=== PATIENT | female | born 1990 | race Caucasian/White ===

== ENCOUNTER 2021-01-06 13:22 | Emergency (ER) | payer MEDICAID, SELFPAY ==
[2021-01-06 13:25] VITALS: BP 135/81; PULSE 108; RESP 18; TEMP 36.7; O2SAT 99; BMI 19.1
[2021-01-06 13:27] VITALS: BP 135/81; PULSE 108; RESP 18; O2SAT 99; BMI 19.1
--- NOTE | 2021-01-06 13:45 | HMH.EDUTC ---
[facility] [place] Impression: Urticaria Disposition: Home, Self-Care Condition on Discharge: Good Instructions: DI for Hives, Hives, Methylprednisolone Additional Instructions: Over the counter Benadryl as directed on package for itching and rash Start Medrol dose pack tomorrow 01/07/21 Return if needed Straight to ER if any life threatening symptoms Follow up with your Family Doctor if needed Prescriptions: methylPREDNISolone [Medrol 4mg tab] 4 mg PO DIRECTED #21 tab Transmission Status: Pending to [facility]/pharmacy #[id number] Referrals: PCP,No [Primary Care Provider] - As needed Time of Disposition: 14:25 Medical Decision Making - Shubham Inquiry Pt receiving controlled substance: No Shubham was queried for this patient: No Vital Signs: 01/06/21 13:25 01/06/21 13:27 Temperature 98.0 F Temperature Source Oral Pulse Rate [Left Radial] 108 H 108 H Respiratory Rate 18 18 Blood Pressure [Right Arm] 135/81 135/81 Blood Pressure Mean [Right Arm] 99 99 Blood Pressure Source [Right Arm] Automatic Cuff Blood Pressure Position [Right Arm] Sitting 02 Sat by Pulse Oximetry 99 99 Oxygen Delivery Method Room Air Room Air Orders (Tests/Meds): ED MEDICATIONS Discontinued Medications Generic Name Dose Route Start Last Admin Trade Name Freq PRN Reason Stop Dose Admin Diphenhydramine HCl 25 mg 01/06/21 13:46 01/06/21 14:05 Diphenhydramine 50mg/Ml Vial IM 01/06/21 13:47 25 mg ONCE ONE Administration Famotidine 20 mg 01/06/21 13:46 01/06/21 14:05 Famotidine 20mg Tablet PO 01/06/21 13:47 20 mg ONCE ONE Administration Loratadine 10 mg 01/06/21 13:47 01/06/21 14:05 Loratadine 10mg Tablet PO 01/06/21 13:48 10 mg ONCE ONE Administration Methylprednisolone Sodium Succinate 125 mg 01/06/21 13:45 01/06/21 14:05 Methylprednisolone Sod Succ 125mg Vial IM 01/06/21 13:46 125 mg ONCE ONE Administration Medical Decision Narrative: Rash improved after medication [facility] [place] - General Stated complaint: rash/hives on face and arms Time Seen by Provider: 01/06/21 13:45 Mode of Arrival: Ambulatory Source of Information: Patient Limitations: No Limitations Description of Symptoms (Recalled from Triage Doc. by RN): c/o rash on face. Denies any throat swelling, dryness or pain - History of Present Illness Provider Complaint: Patient state that she was out in the [place] a few days ago and she started breaking out with rash on her face and arms and has a couple spots on her leg Reports that rash is itchy and spot around her eye has got worse since yesterday State that she took Benadryl last night and it helped a little but today was still getting worse so she came in - Related Data Previous Rx's Medication Instructions Recorded methylPREDNISolone [Medrol 4mg 4 mg PO DIRECTED #21 tab 01/06/21 tab] Allergies Allergy/AdvReac Type Severity Reaction Status Date / Time amoxicillin [From Augmentin] Allergy Verified 01/06/21 13:44 clavulanic acid Allergy Verified 01/06/21 13:44 [From Augmentin] - Worker's Comp Is this a Worker's Comp case?: No [facility] History - Hepatitis A Screen Drug use history?: No High risk sexual behaviors?: No History of sexually transmitted infection?: No Currently employed?: No Childcare worker?: No Do you have indoor plumbing?: Yes Do you have electricity?: Yes Attestation statement:: This patient has been screened for Hepatitis A risk factors. I have reviewed the patient's past medical history: Yes Laterality Cases: Bilateral: Tonsillectomy - Social History Smoking Status: Current every day smoker Tobacco Type: cigarettes # Packs/Day (cigarettes): 1 Alcohol Intake: never Occupational Status: other ROS Obtained: Yes All systems reviewed & no additional complaints, Yes Systems reviewed as appropriate & no additional complaints - Integumentary/Breasts Skin/Breast: Reports rash Physical Exam -
[2021-01-06 14:25] VITALS: BP 135/81; PULSE 108; RESP 18; TEMP 36.7; O2SAT 99
== END 2021-01-06 14:27 | disposition home or self-care (01) ==
LOC: ER 13:29 → UTC 13:30
PROVIDERS: Emergency Provider Nurse Practitioner
DX: L50.9 Urticaria, unspecified (principal); Z88.1 Allergy status to other antibiotic agents; F17.210 Nicotine dependence, cigarettes, uncomplicated
CPT/HCPCS: 96372; 99202; G0463

== ENCOUNTER → 2021-05-26 14:05 | Outpatient (CLI) | payer MEDICAID, SELFPAY ==
[2021-05-27 07:41] LABS: Progesterone 10.3 ng/mL (.)
== END ==
PROVIDERS: Visit Provider Obstetrics & Gynecology
DX: Z31.69 Encounter for other general counseling and advice on procreation (principal)
CPT/HCPCS: 84144

== ENCOUNTER → 2021-07-02 09:46 | Outpatient (CLI) | payer MEDICAID, SELFPAY ==
[2021-07-02 10:28] LABS: Basophils % 0.5 % (0.1-2.0); Eosinophils # 0.2 K/mm3 (0.0-0.4); Eosinophils % 3.1 % (0.1-12.0); Hematocrit 44.9 % (37.0-47.0); Hemoglobin 14.4 g/dL (12.2-16.2); Lymphocytes # 1.4 K/mm3 (0.7-4.5); Lymphocytes % 19.3 % (10-50); Mean Corpuscular HGB Conc 32.2 g/dL (31.8-35.4); Mean Corpuscular Hemoglobin 32.8 pg (27.0-31.2); Mean Platelet Volume 7.9 fl (7.4-10.4); Monocytes # 0.4 K/mm3 (0.1-1.0); Monocytes % 6.1 % (1.7-9.3); Neutrophils # 5.1 K/mm3 (1.8-7.8); Neutrophils % 70.9 % (37.0-80.0); Platelet Count 272 K/mm3 (142-424); Red Cell Distribution Width 12.6 % (11.5-17.5); White Blood Count 7.2 K/mm3 (4.8-10.8)
[2021-07-02 11:25] LABS: HCG Qualitative, Serum Negative (Negative)
[2021-07-02 11:33] LABS: Chloride 103 mmol/L (98-107); Potassium 4.2 mmoL/L (3.5-5.1); Sodium 140 mmol/L (136-145)
[2021-07-02 11:35] LABS: Blood Urea Nitrogen 8 mg/dl (7-17); Estimated Glomerular Filt Rate 98 ml/min (>60); GFR (African American) 119 ML/MIN (>60)
[2021-07-02 11:36] LABS: Alanine Aminotransferase 19 U/L (12-78); Albumin Level 4.6 g/dl (3.5-5.0); Albumin/Globulin Ratio 1.6 (1.1-1.8); Alkaline Phosphatase 60 U/L (38-126); Anion Gap 17.2 mEq/L (5-15); Aspartate Amino Transferase 25 U/L (14-36); Bilirubin,Total 0.2 mg/dl (0.2-1.3); Calcium 9.4 mg/dl (8.4-10.2); Carbon Dioxide 24 mmol/L (22.0-30.0); Globulin 2.9 g/dL (1.3-3.2); Glucose 97 mg/dl (74-100); Total Protein,Serum 7.5 g/dl (6.3-8.2)
== END ==
PROVIDERS: Visit Provider Obstetrics & Gynecology
DX: Z01.812 Encounter for preprocedural laboratory examination (principal); Z11.52 Encounter for screening for COVID-19; N97.9 Female infertility, unspecified
CPT/HCPCS: 36415; 80053; 84703; 85025; C9803; U0003; U0005

== ENCOUNTER 2021-07-03 12:12 | Day surgery (SDC) | payer MEDICAID, SELFPAY ==
[2021-07-03] VITALS (10 sets, daily range): BP systolic 108–130; BP diastolic 53–78; PULSE 59–86; RESP 16–18; TEMP 36.2–36.7; O2SAT 99–100
--- NOTE | 2021-07-03 14:42 | P.PN_ITS ---
[facility] Anesthesia Checklist - Patient Identification Patient Identification: Arm Band, Verbal (Name & ) - Structural Data Admitted From: Home Planned Operative Procedure/s: diag. lap Consent for Planned Operative Procedure(s) Verified: Yes Verified Documents: History and Physical - NPO Status Verified Time NPO: 00:00 - Chart Verification Results Verified: CBC, BMP - Additional verifications Patient : No Anesthesia Reactions: Yes (N/V) Hx Blood Transfusions: No Blood Transfusion Reaction: No Cephalosporin Allergy: No Previous Colonoscopy: No - Cardiovascular Assessment Heart Sounds: S1 & S2 Pulse Strength: Baseline Pulse Rhythm: Regular Peripheral Edema: No - Airway Assessment C-Spine Mobility Assessed: Yes TMJ Mobility Assessed: Yes Dentition: Good Dentition - Neurological Assessment Level of Consciousness: Awake, Alert, Appropriate Hx Seizures: No Numbness or tingling in extremities: No - Anesthesia Plan Anesthesia Risk discussed: Yes Anesthesia Plan: Verified ASA Class: II Anesthesia Type: General [facility] History I have reviewed the patient's past medical history: Yes Medical History: Denies:: Cancer, Diabetes Mellitus Type 1, Diabetes Mellitus Type 2, Internal Pacemaker, MRSA, Seizures *Have you ever received a pneumonia vaccine?: No *Have you received a flu vaccine this season?: No Other Medical History: Denies: Blood Transfusion Reaction Anesthesia experience/problems:: none Laterality Cases: Bilateral: Myringotomy (Ear Tubes), Tonsillectomy Other Surgeries: No: Pacemaker Amputation: No Fractures: No - *Social History Last grade of school completed: Some college Smoking Status: Former smoker Tobacco Type: cigarettes # Packs/Day (cigarettes): 1 Alcohol Intake: never Substance Use Type: denies use *Occupational Status:: employed Housing: house Household Members: spouse, family *Travel in the last 8 weeks: None Family Hx:: Cancer, Diabetes, Coronary Artery Disease, Hypertension, Substance abuse, Alcoholism, Mental illness, Asthma, Anemia
--- NOTE | 2021-07-03 14:43 | P.PN_ITS ---
[facility] Anesthesia Record Part I Intake, IV Amount: 850 Estimated blood loss (mL): 10 Urine output (mL): 0 Blood Products used (#): none Blood Pressure: 119/59 SaO2: 99 Pulse Rate: 68 Respiratory Rate: 18 Temperature: 98.1 F Patient is:: Awake, Stable Stable to PACU at:: 14:40
--- NOTE | 2021-07-03 15:05 | P.OP_ITS ---
Date of procedure: 07/03/21 Pre-op Diagnosis:: Infertility Post-op Diagnosis:: same Procedure performed:: Diagnostic laparoscopy Chromotubation Surgeon:: Daly Delaney MD [facility] OPERATOR:: Other Anesthesia: GETA Estimated blood loss (mL): 5 Operative findings:: dilated but patent left fallopian tube normal appearing but obstructed right fallopian tube grossly normal appearing ovaries bilaterally grossly normal appearing uterus no pelvic adhesions or evidence of endometriosis Operative note:: The patient was taken to the operating room and general anesthesia was administered. She was prepped/draped in lithotomy position. A uterine manipulator was placed without difficulty. Gloves were changed and attention was turned to the abdomen. A 5mm skin incision was made in the umbilical fold and the verees needle was inserted through the peritoneum and into the abdominal cavity in standard fashion. The abdomen was insufflated with CO2 gas. A 5mm non-bladed trocar was inserted directly into the abdominal cavity and appropriate placement was confirmed with the laparoscope. No intra-abdominal injuries occurred during entry into the abdominal cavity, as confirmed visually with the laparoscope. The patient was placed in trendelenburg and a 5mm skin incision was made 2cm above the pubic symphysis. A 5mm non-bladed trocar was inserted under direct visualization, without complication. The uterus was elevated out of the pelvis in order to better visualize the anatomy. A survey of the pelvis and abdomen revealed 1. a dilated but patent left fallopian tube, 2. a normal appearing but obstructed right fallopian tube, 3. grossly normal appearing ovaries bilaterally, 4. a grossly normal appearing uterus, and 5. no p elvic adhesions or evidence of endometriosis. During the chromotubation, dye was observed passing through the left fallopian tube even though it appeared diated and abnormal. Although the right fallopian tube appeared normal, no dye was able to pass through the right fallopian tube, in spite of multiple attempts. The abdomen was then evacuated of gas and all trocars removed. The skin incisions were closed with dermabond. The uterine manipulator was removed. All sponge/lap/needle/instrument counts correct for both abdominal and vaginal procedures. Total EBL: 5 cc. The patient was taken out of lithotomy position, extubated and taken to the PACU in stable condition. Condition: stable Disposition: PACU Specimens:: none Complications:: none
--- NOTE | 2021-07-03 19:58 | HMH.ANESII ---
[facility] Anesthesia Record Part II Discharge Time: 15:10 Destination: Surgical Day Care (OP Surgery) PACU nurse assessment reviewed?: Yes Patient Condition:: Good Anesthesia Complications:: None Swallowing reflex intact?: Yes Cyanosis?: No Blood Pressure: 111/73 Pulse Rate: 70 Temperature: 97.8 F Mental Status: Alert & Oriented Pain level:: 2 Nausea and/or vomitting:: None Intake, IV Amount: 50
== END 2021-07-03 15:42 | disposition home or self-care (01) ==
LOC: OR 12:14
PROVIDERS: Visit Provider Obstetrics & Gynecology
PROC: (CPT 49320; principal; 2021-07-03 13:30)
DX: N97.1 Female infertility of tubal origin; R87.610 Atypical squamous cells of undetermined significance on cytologic smear of cervix (ASC-US)
CPT/HCPCS: 49320; 58350; 96374; J2405; J2710

== ENCOUNTER 2021-10-13 18:07 | Emergency (ER) | payer MEDICAID, SELFPAY ==
[2021-10-13] VITALS (8 sets, daily range): BP systolic 117–126; BP diastolic 82–87; PULSE 57–109; RESP 10–20; TEMP 36.7; O2SAT 98–100; BMI 25.0
--- NOTE | 2021-10-13 18:12 | XR_ITS ---
PROCEDURE INFORMATION: Exam: XR Chest Exam date and time: 10/13/2021 6:12 PM Age: 31 years old Clinical indication: Sternal or substernal pain; Additional info: Chest pain TECHNIQUE: Imaging protocol: XR of the chest. Views: 1 view. Total images: 1 COMPARISON: No relevant prior studies available. FINDINGS: Lungs: Normal pulmonary expansion. Pulmonary vasculature grossly normal. No gross pulmonary infiltrates or edema pattern. Pleural spaces: No pleural effusion. No pneumothorax. Heart/Mediastinum: Heart size normal. No tracheal/mediastinal shift. Bones/joints: No acute osseous abnormalities are identified. IMPRESSION: No acute thoracic process.
--- NOTE | 2021-10-13 19:07 | ECG_ITS ---
APPROVED REPORT Exam: Resting ECG HR:70 bpm ECG Measurements Heart Rate 70 AXES NC 152 P 74 QRSd 76 QRS 77 QT 392 T 48 QTc 423 Conclusion Normal sinus rhythm Possible Left atrial enlargement Borderline ECG Electronically signed by : Juan Carlos Damico MD 10/14/2021 09:07:13
[2021-10-13 19:16] LABS: Chloride 102 mmol/L (98-107); Potassium 3.7 mmoL/L (3.5-5.1); Sodium 138 mmol/L (136-145)
[2021-10-13 19:19] LABS: Anion Gap 15.7 mEq/L (5-15); Blood Urea Nitrogen 11 mg/dl (7-17); Carbon Dioxide 24 mmol/L (22.0-30.0); Creatinine Clearance Estimated 126 mL/min (50-200); Estimated Glomerular Filt Rate 98 ml/min (>60); GFR (African American) 119 ML/MIN (>60)
[2021-10-13 19:20] LABS: Calcium 9.8 mg/dl (8.4-10.2); Glucose 98 mg/dl (74-100); HCG Qualitative, Serum Negative (Negative)
[2021-10-13 19:21] LABS: Basophils # 0.1 K/mm3 (0-0.2); Basophils % 0.8 % (0.1-2.0); Eosinophils # 0.1 K/mm3 (0.0-0.4); Eosinophils % 0.5 % (0.1-12.0); Hematocrit 44.5 % (37.0-47.0); Hemoglobin 14.4 g/dL (12.2-16.2); Lymphocytes # 1.8 K/mm3 (0.7-4.5); Mean Corpuscular HGB Conc 32.4 g/dL (31.8-35.4); Mean Corpuscular Hemoglobin 31.7 pg (27.0-31.2); Mean Corpuscular Volume 97.7 fl (81-99); Mean Platelet Volume 8.6 fl (7.4-10.4); Monocytes # 0.4 K/mm3 (0.1-1.0); Monocytes % 4.1 % (1.7-9.3); Neutrophils % 77.6 % (37.0-80.0); Platelet Count 299 K/mm3 (142-424); Red Blood Count 4.55 M/mm3 (4.20-5.40); Red Cell Distribution Width 13.5 % (11.5-17.5); White Blood Count 10.3 K/mm3 (4.8-10.8)
[2021-10-13 19:37] LABS: Troponin I < 0.01 ng/ml (0.00-0.034)
[2021-10-13 22:35] LABS: Troponin I < 0.01 ng/ml (0.00-0.034)
--- NOTE | 2021-10-13 22:39 | HMH.EDCP ---
ED Disposition Clinical Impression: Atypical chest pain Disposition: Home, Self-Care Condition on Discharge: Good Instructions: DI for Atypical Chest Pain Additional Instructions: see pcp and card for follow up Referrals: Provider,MD Rimma [Primary Care Provider] - James Garcia MD [Staff Physician] - - Critical Care Critical Care Time: No Attestation: On 10/13/21, the high probability of a clinically significant, sudden or life threatening deterioration of the following system(s) required my full and direct attention, intervention and personal management. The time I documented below is in addition to time spent performing reported procedures but includes the following listed in this critical care notation. Medical Decision Making - Medical Records Medical records reviewed: Yes: I reviewed the patient's medical records. - Shubham Inquiry Pt receiving controlled substance: No Vital Signs: 10/13/21 18:17 10/13/21 18:18 10/13/21 18:30 Pulse Rate 94 H 86 84 Respiratory Rate 11 L 10 L 11 L Blood Pressure 126/87 121/82 Blood Pressure Mean 98 91 Blood Pressure Source Blood Pressure Position 02 Sat by Pulse Oximetry 100 100 100 Oxygen Delivery Method 10/13/21 18:45 10/13/21 20:51 10/13/21 21:29 Pulse Rate 109 H 82 67 Respiratory Rate 13 17 17 Blood Pressure 118/84 117/83 Blood Pressure Mean Blood Pressure Source Automatic Cuff Automatic Cuff Blood Pressure Position Supine Supine 02 Sat by Pulse Oximetry 100 98 99 Oxygen Delivery Method Room Air Room Air 10/13/21 22:13 Pulse Rate 57 L Respiratory Rate Blood Pressure 126/85 Blood Pressure Mean Blood Pressure Source Automatic Cuff Blood Pressure Position Supine 02 Sat by Pulse Oximetry 99 Oxygen Delivery Method Room Air - Lab Data Lab results reviewed: Yes: I reviewed the patient's lab results. Lab Results 10/13/21 18:59: WBC 10.3, RBC 4.55, Hgb 14.4, Hct 44.5, MCV 97.7, MCH 31.7 H, MCHC 32.4, RDW 13.5, Plt Count 299, MPV 8.6, Neut % (Auto) 77.6, Lymph % (Auto) 17.0, [place] % (Auto) 4.1, Eos % (Auto) 0.5, Baso % (Auto) 0.8, Neut # (Auto) 8.0 H, Lymph # (Auto) 1.8, [place] # (Auto) 0.4, Eos # (Auto) 0.1, Baso # (Auto) 0.1 10/13/21 18:59: Sodium 138, Potassium 3.7, Chloride 102, Carbon Dioxide 24, Anion Gap 15.7 H, BUN 11, Creatinine 0.70, Estimated Creat Clear 126, Estimated GFR 98, Est GFR ( Amer) 119, Glucose 98, Calcium 9.8, Troponin I < 0.01 10/13/21 18:59: Serum HCG, Qual Negative 10/13/21 21:37: Troponin I < 0.01 Result diagrams: 10/13/21 18:59 10/13/21 18:59 Orders (Tests/Meds): ED MEDICATIONS Generic Name Dose Route Start Last Admin Trade Name Freq PRN Reason Stop Dose Admin Sodium Chloride 1,000 mls @ 999 mls/hr 10/13/21 22:15 10/13/21 22:17 Sod Chlor 0.9% 1000ml Bag IV 10/13/21 23:15 999 mls/hr .Q1H1M KIRK Administration Sodium Chloride 8 ml 10/13/21 22:13 Sodium Chloride 0.9% 10ml Vial IV 11/12/21 22:12 NEEDED PRN dilute pepcid Discontinued Medications Generic Name Dose Route Start Last Admin Trade Name Freq PRN Reason Stop Dose Admin Famotidine 20 mg 10/13/21 22:13 10/13/21 22:16 Famotidine 20mg/2ml Vial IV 10/13/21 22:14 20 mg ONCE ONE Administration Ketorolac Tromethamine 30 mg 10/13/21 22:13 10/13/21 22:17 Ketorolac 30mg/Ml Vial IV 10/13/21 22:14 30 mg ONCE ONE Administration Metoclopramide HCl 10 mg 10/13/21 22:13 10/13/21 22:16 Metoclopramide Hcl 10mg/2ml Vial IVP 10/13/21 22:14 10 mg ONCE ONE Administration ORDERS Category Date Time Status Rapid PCR Covid and Flu A/B Stat Lab 10/13/21 19:01 Ordered Troponin I Q3H Lab 10/14/21 00:15 Ordered - Radiology Data #1 Image(s): Chest Image Reviewed: Yes I have reviewed radiologist's interpretation Preliminary Findings: Normal/NAD - ECG Data Tracing #1 Normal Sinus Rhythm: Yes Ischemic changes: non-specific ST-T wave changes Medical [facility]
== END 2021-10-13 23:15 | disposition home or self-care (01) ==
PROVIDERS: Emergency Medicine; Emergency Provider Emergency Medicine
DX: R07.89 Other chest pain (principal)
CPT/HCPCS: 71045; 80048; 84484; 84703; 85025; 93005; 96365; 96375; 99282

== ENCOUNTER → 2021-10-22 11:01 | Outpatient (CLI) | payer MEDICAID, SELFPAY | PROVIDERS: PCP Student in an Organized Health Care Education/Training Program; Visit Provider Nurse Practitioner Family | DX: R07.89 Other chest pain (principal); R00.2 Palpitations | CPT/HCPCS: 93270 ==

== ENCOUNTER → 2022-04-15 15:39 | Outpatient (CLI) | payer MEDICAID, SELFPAY ==
[2022-04-15 16:51] LABS: HCG,Quantitative 3785 mIU/ml (0-5.42)
== END ==
PROVIDERS: PCP Family Medicine; Visit Provider Obstetrics & Gynecology
DX: Z34.90 Encounter for supervision of normal pregnancy, unspecified, unspecified trimester (principal)
CPT/HCPCS: 36415; 84702

== ENCOUNTER → 2022-04-18 08:27 | Outpatient (CLI) | payer MEDICAID, SELFPAY ==
[2022-04-18 09:41] LABS: Basophils # 0.1 K/mm3 (0-0.2); Basophils % 0.7 % (0.1-2.0); Eosinophils # 0.3 K/mm3 (0.0-0.4); Eosinophils % 4.6 % (0.1-12.0); Hematocrit 40.6 % (37.0-47.0); Hemoglobin 13.9 g/dL (12.2-16.2); Lymphocytes # 1.5 K/mm3 (0.7-4.5); Lymphocytes % 20.6 % (10-50); Mean Corpuscular HGB Conc 34.3 g/dL (31.8-35.4); Mean Corpuscular Hemoglobin 32.3 pg (27.0-31.2); Mean Corpuscular Volume 94.3 fl (81-99); Mean Platelet Volume 7.6 fl (7.4-10.4); Monocytes # 0.4 K/mm3 (0.1-1.0); Platelet Count 338 K/mm3 (142-424); Red Cell Distribution Width 12.5 % (11.5-17.5); White Blood Count 7.4 K/mm3 (4.8-10.8)
[2022-04-18 10:15] LABS: Chloride 103 mmol/L (98-107); Sodium 136 mmol/L (136-145)
[2022-04-18 10:18] LABS: Alanine Aminotransferase 18 U/L (12-78); Albumin Level 4.9 g/dl (3.5-5.0); Alkaline Phosphatase 50 U/L (38-126); Aspartate Amino Transferase 29 U/L (14-36); Bilirubin,Total 0.8 mg/dl (0.2-1.3); Blood Urea Nitrogen 9 mg/dl (7-17); Calcium 9.7 mg/dl (8.4-10.2); Carbon Dioxide 24 mmol/L (22.0-30.0); Estimated Glomerular Filt Rate 117 ml/min (>60); GFR (African American) 141 ML/MIN (>60); Globulin 2.5 g/dL (1.3-3.2); Glucose 86 mg/dl (74-100); Total Protein,Serum 7.4 g/dl (6.3-8.2)
[2022-04-18 10:36] LABS: HCG,Quantitative 9808 mIU/ml (0-5.42)
== END ==
PROVIDERS: PCP Family Medicine; Visit Provider Obstetrics & Gynecology
DX: O09.90 Supervision of high risk pregnancy, unspecified, unspecified trimester (principal)
CPT/HCPCS: 80053; 84702; 85025; C9803; U0003; U0005

== ENCOUNTER 2022-04-19 10:47 | Day surgery (SDC) | payer MEDICAID, SELFPAY ==
[2022-04-19] VITALS (20 sets, daily range): BP systolic 108–149; BP diastolic 60–96; PULSE 76–101; RESP 11–19; TEMP 36.2–37.1; O2SAT 97–100; BMI 19.6
--- NOTE | 2022-04-19 10:53 | HMH.EDUROGF ---
ED Disposition Clinical Impression: Ectopic , tubal Qualifiers: Intrauterine status: without intrauterine Laterality: right Qualified Code(s): O00.101 - Right tubal without intrauterine Disposition: Admitted As Inpatient Condition on Discharge: Serious - Critical Care Critical Care Time: No Attestation: On 04/19/22, the high probability of a clinically significant, sudden or life threatening deterioration of the following system(s) required my full and direct attention, intervention and personal management. The time I documented below is in addition to time spent performing reported procedures but includes the following listed in this critical care notation. Medical Decision Making - Medical Records Medical records reviewed: Yes: I reviewed the patient's medical records. - Shubham Inquiry Pt receiving controlled substance: No Vital Signs: 04/19/22 10:48 04/19/22 11:20 04/19/22 11:30 Temperature 98.5 F Temperature Source Oral Pulse Rate 82 86 Pulse Rate [Right Radial] 97 H Respiratory Rate 19 16 Blood Pressure 119/88 132/87 Blood Pressure [Right Arm] 149/96 H Blood Pressure Mean 99 Blood Pressure Mean [Right Arm] 113 Blood Pressure Source [Right Arm] Automatic Cuff Blood Pressure Position [Right Arm] Sitting 02 Sat by Pulse Oximetry 100 100 100 Oxygen Delivery Method Room Air Room Air 04/19/22 12:00 04/19/22 12:45 04/19/22 13:12 Temperature 98.8 F Temperature Source Pulse Rate 81 76 101 H Pulse Rate [Right Radial] Respiratory Rate 16 16 11 L Blood Pressure 138/83 134/87 134/87 Blood Pressure [Right Arm] Blood Pressure Mean 100 Blood Pressure Mean [Right Arm] Blood Pressure Source [Right Arm] Blood Pressure Position [Right Arm] 02 Sat by Pulse Oximetry 99 100 Oxygen Delivery Method Room Air Room Air - Lab Data Lab results reviewed: Yes: I reviewed the patient's lab results. Lab Results 04/19/22 10:51: Urine Color Yellow, Urine Appearance Clear, Urine pH 7.0, Ur Specific [place] <= 1.005, Urine Protein Negative, Urine Glucose (UA) Negative, Urine Ketones Negative, Urine Blood Trace-l, Urine Nitrate Negative, Urine Bilirubin Negative, Urine Urobilinogen 0.2, Ur Leukocyte Esterase Negative, Urine RBC None, Urine WBC None, Ur Squamous Epith Cells Occasional, Urine Bacteria Trace 04/19/22 11:20: WBC 7.6, RBC 4.31, Hgb 13.7, Hct 44.2, MCV 102.5 H, MCH 31.9 H, MCHC 31.1 L, RDW 13.1, Plt Count 300, MPV 8.2, Neut % (Auto) 74.9, Lymph % (Auto) 16.0, [place] % (Auto) 4.4, Eos % (Auto) 3.0, Baso % (Auto) 1.6, Neut # (Auto) 5.7, Lymph # (Auto) 1.2, [place] # (Auto) 0.3, Eos # (Auto) 0.2, Baso # (Auto) 0.1 04/19/22 11:20: Sodium 136, Potassium 3.9, Chloride 106, Carbon Dioxide 22, Anion Gap 11.9, BUN 9, Creatinine 0.50 L, Estimated Creat Clear 138, Estimated GFR 144, Est GFR ( Amer) 174 D, Glucose 92, Calcium 9.5, Total Bilirubin 0.7, AST 36, ALT 17, Alkaline Phosphatase 56, Total Protein 7.4, Albumin 4.5, Globulin 2.9, Albumin/Globulin Ratio 1.6 04/19/22 11:20: HCG, Quant [id number] H 04/19/22 11:20: Blood Type A Negative, Antibody Screen Negative 04/19/22 12:46: SARS-CoV-2 (PCR) Not detected, Influenza A Untype (PCR) Not detected, Influenza Type B (PCR) Not detected Result diagrams: 04/19/22 11:20 04/19/22 11:20 Orders (Tests/Meds): ED MEDICATIONS Discontinued Medications Generic Name Dose Route Start Last Admin Trade Name Freq PRN Reason Stop Dose Admin Morphine Sulfate 4 mg 04/19/22 11:28 04/19/22 11:28 Morphine 4mg/Ml Syringe IV 04/19/22 11:29 4 mg ONCE ONE Administration Sodium Chloride 10 ml 04/19/22 11:13 Sodium Chloride 0.9% 10ml Flush Syringe IV 05/19/22 11:12 NEEDED PRN Maintain IV Site - Reevaluation(s) Time: 12:20 Reevaluation #1: Pain is improved after morphine Medical Decision Narrative: The patient presents to the emergency department complaining of righ
[2022-04-19 10:56] LABS: Microscopic, Urine URINE MICROSCOPIC (MICROSCOPIC)
[2022-04-19 10:58] LABS: Appearance,Urine CLEAR (Clear); Bilirubin,Urine Negative (Negative); Blood, Urine TRACE-L (Negative); Color,Urine YELLOW (Yellow); Glucose,Urine (UA) Negative (Negative); Ketones,Urine Negative (Negative); Leukocyte Esterase,Urine Negative (Negative); Nitrate,Urine Negative (Negative); Protein,Urine Negative (Negative); Specific Gravity, Urine <= 1.005 (1.005-1.030); Urobilinogen,Urine 0.2 EU/dl (0.2)
--- NOTE | 2022-04-19 11:12 | PC.NURSE ---
ER gave verbal order for RH type contacted lab to come down and witness blood collection
--- NOTE | 2022-04-19 11:14 | PC.NURSE ---
JIGNESH VIEIRA at
[2022-04-19 11:16] LABS: Bacteria,Urine Trace /lpf; Squamous Epithelial Cell,Urine Occasional #/hpf (0-5)
--- NOTE | 2022-04-19 11:18 | PC.NURSE ---
ZULY Hassan and knowledge management advisor at
--- NOTE | 2022-04-19 11:29 | PC.NURSE ---
informed pt and so no eating or drinking until final test results
[2022-04-19 11:49] LABS: Basophils # 0.1 K/mm3 (0-0.2); Basophils % 1.6 % (0.1-2.0); Eosinophils # 0.2 K/mm3 (0.0-0.4); Hematocrit 44.2 % (37.0-47.0); Hemoglobin 13.7 g/dL (12.2-16.2); Lymphocytes # 1.2 K/mm3 (0.7-4.5); Mean Corpuscular HGB Conc 31.1 g/dL (31.8-35.4); Mean Corpuscular Hemoglobin 31.9 pg (27.0-31.2); Mean Corpuscular Volume 102.5 fl (81-99); Mean Platelet Volume 8.2 fl (7.4-10.4); Monocytes # 0.3 K/mm3 (0.1-1.0); Monocytes % 4.4 % (1.7-9.3); Neutrophils # 5.7 K/mm3 (1.8-7.8); Neutrophils % 74.9 % (37.0-80.0); Platelet Count 300 K/mm3 (142-424); Red Blood Count 4.31 M/mm3 (4.20-5.40); Red Cell Distribution Width 13.1 % (11.5-17.5); White Blood Count 7.6 K/mm3 (4.8-10.8)
[2022-04-19 11:53] LABS: Chloride 106 mmol/L (98-107); Potassium 3.9 mmoL/L (3.5-5.1); Sodium 136 mmol/L (136-145)
[2022-04-19 11:56] LABS: Alanine Aminotransferase 17 U/L (12-78); Albumin Level 4.5 g/dl (3.5-5.0); Albumin/Globulin Ratio 1.6 (1.1-1.8); Alkaline Phosphatase 56 U/L (38-126); Anion Gap 11.9 mEq/L (5-15); Aspartate Amino Transferase 36 U/L (14-36); Bilirubin,Total 0.7 mg/dl (0.2-1.3); Blood Urea Nitrogen 9 mg/dl (7-17); Carbon Dioxide 22 mmol/L (22.0-30.0); Creatinine Clearance Estimated 138 mL/min (50-200); Estimated Glomerular Filt Rate 144 ml/min (>60); GFR (African American) 174 ML/MIN (>60); Globulin 2.9 g/dL (1.3-3.2); Total Protein,Serum 7.4 g/dl (6.3-8.2)
[2022-04-19 11:57] LABS: Calcium 9.5 mg/dl (8.4-10.2); Glucose 92 mg/dl (74-100)
--- NOTE | 2022-04-19 12:00 | US_ITS ---
FINAL REPORT CLINICAL HISTORY: R pelvic pain, r/o ectopic FINDINGS: US TRANSVAGINAL Sonographic images the pelvis were obtained. The endometrium measures 10 mm and is normal. No gestational sac is identified within the uterus. A gestational sac with a yolk sac and pole are noted in the right adnexa consistent with a right ectopic . There is a small to moderate amount of free fluid that may represent a hemorrhage. The left ovary is normal. The emergency department physician was notified of these findings at the time of this examination. IMPRESSION: Gestational sac with a yolk sac and pole noted in the right adnexa consistent with a right ectopic . Reviewed, Interpreted and Dictated by Genaro Weiner III, MD Transcribed by Pza Rios Authenticated and [facility]
--- NOTE | 2022-04-19 12:02 | PC.NURSE ---
notified radiology of ultrasound order, spoke with vy per lab HCG quant will be resulted in approx 12 mins- notified rad of this as well.
--- NOTE | 2022-04-19 12:04 | PC.NURSE ---
updated pt on POC- ultrasound order and waiting on results of HCG quant
[2022-04-19 12:13] LABS: HCG,Quantitative 12913 mIU/ml (0-5.42)
--- NOTE | 2022-04-19 12:14 | PC.NURSE ---
pt to US by wheelchair with technician support association
--- NOTE | 2022-04-19 12:41 | PC.NURSE ---
Pt returned from ultrasound
--- NOTE | 2022-04-19 12:44 | PC.NURSE ---
notified lab of added on type and screen on pt
--- NOTE | 2022-04-19 12:45 | INFXCTL.NOTE ---
grout pump operator paging dr. gonsales, no answer in her office
--- NOTE | 2022-04-19 12:45 | PC.NURSE ---
Addendum entered by Annabella Saez RN 04/19/22 12:53: JIGNESH VIEIRA states Dr. Delaney is going to call the OR staff Original Note: JIGNESH VIEIRA speaking with Dr Delaney
--- NOTE | 2022-04-19 12:49 | PC.NURSE ---
notified care management of admission, spoke with Michelle, states will be an acute admission
--- NOTE | 2022-04-19 12:52 | PC.NURSE ---
ER at updating pt on results and POC
--- NOTE | 2022-04-19 13:00 | PC.NURSE ---
In preparation for OR pt in gown, jewelry removed per pt, non-skid socks on, buffount cap on, chucks pad under pt r/t vaginal bleeding. Pt reports she is comfortable. Reports is warm enough. Pt reports no needs at this time. at BS. will continue to monitor.
--- NOTE | 2022-04-19 13:07 | PC.NURSE ---
kash yanes from pre-op states she is on her way down to get pt.
--- NOTE | 2022-04-19 13:08 | HMH.PHAINT ---
MEDICATION RECONCILIATION COMPLETED ON PATIENT USING EXTERNAL FILL HISTORY FORM PHARMACY. -LUIS WOODARD, LILID
[2022-04-19 13:10] LABS: Coronavirus 19, PCR Not Detected (NotDetected); Influenza A, PCR Not Detected (NotDetected); Influenza B, PCR Not Detected (NotDetected)
--- NOTE | 2022-04-19 13:12 | PC.NURSE ---
report given to kash yanes at this time, she is transporting pt to OR
--- NOTE | 2022-04-19 13:54 | HMH.ANESCL ---
[facility] Anesthesia Checklist - Patient Identification Patient Identification: Arm Band - Structural Data Admitted From: Emergency Dept Planned Operative Procedure/s: Dx. lap Consent for Planned Operative Procedure(s) Verified: Yes - NPO Status Verified Time NPO: 00:00 - Additional verifications Anesthesia Reactions: Yes (N/V) Hx Blood Transfusions: No Blood Transfusion Reaction: No - Airway Assessment C-Spine Mobility Assessed: Yes TMJ Mobility Assessed: Yes Dentition: Good Dentition - Neurological Assessment Level of Consciousness: Awake Hx Seizures: No Numbness or tingling in extremities: No - Anesthesia Plan Anesthesia Risk discussed: Yes Anesthesia Plan: Verified ASA Class: II (II E) Anesthesia Type: General [facility] History I have reviewed the patient's past medical history: Yes Medical History: Denies:: Cancer, Diabetes Mellitus Type 1, Diabetes Mellitus Type 2, Internal Pacemaker, MRSA, Seizures *Have you ever received a pneumonia vaccine?: No *Have you received a flu vaccine this season?: No Other Medical History: Denies: Blood Transfusion Reaction Anesthesia experience/problems:: None Laterality Cases: Bilateral: Myringotomy (Ear Tubes), Tonsillectomy Other Surgeries: No: Pacemaker Amputation: No Fractures: No - *Social History Smoking Status: Former smoker Tobacco Type: cigarettes # Packs/Day (cigarettes): 1 Alcohol Intake: never Substance Use Type: denies use *Occupational Status:: employed Housing: house Household Members: spouse, family *Travel in the last 8 weeks: None Family Hx:: Cancer, Diabetes, Coronary Artery Disease, Hypertension, Substance abuse, Alcoholism, Mental illness, Asthma, Anemia
--- NOTE | 2022-04-19 15:18 | P.PN_ITS ---
[facility] Anesthesia Record Part I Intake, IV Amount: 900 Estimated blood loss (mL): 200 Urine output (mL): 50 Blood Pressure: 108/60 SaO2: 97 Pulse Rate: 90 Respiratory Rate: 13 Temperature: 97.1 F Patient is:: Awake Stable to PACU at:: 15:13
--- NOTE | 2022-04-19 15:48 | P.OP_ITS ---
Date of procedure: 04/19/22 Pre-op Diagnosis:: 1. Right ectopic 2. Hemoperitoneum 3. Tubal occlusion Post-op Diagnosis:: 1. Right ectopic 2. Hemoperitoneum 3. Tubal occlusion 4. Pelvic adhesions Procedure performed:: Diagnostic laparoscopy Right salpingo-oophorectomy Lysis of adhesions Surgeon:: Daly Delaney MD MOLD CONSTRUCTION SUPERVISOR:: Mell Sachayuri Anesthesia: GETA Estimated blood loss (mL): 200 Operative findings:: hemoperitoneum 200cc dilated right fallopian tube ectopic at distal end of right fallopian tube, actively bleeding dense adhesions between right ovary and fallopian tube Operative note:: The patient was taken to the operating room and general anesthesia was administered. She was prepped/draped in lithotomy position. A uterine manipulator was placed without difficulty. Gloves were changed and attention was turned to the abdomen. A 5mm skin incision was made in the umbilical fold and the Verees needle was inserted through the peritoneum and into the abdominal cavity in standard fashion. The abdomen was insufflated with CO2 gas. A 5mm non-bladed trocar was inserted directly into the abdominal cavity and appropriate placement was confirmed with the laparoscope. No intra-abdominal injuries occurred during entry into the abdominal cavity, as confirmed visually with the laparoscope. The patient was placed in trendelenburg and a 11mm skin incision was made 2cm above the pubic symphysis. A 11mm non-bladed trocar was inserted under direct visualization, without complication. A 5mm skin incision was made in the RLQ and a 5mm non-bladed trocar was inserted under direct visualization. The uterus was elevated out of the pelvis in order to better visualize the anatomy. A survey of the pelvis and abdomen revealed active bleeding from the distal end of right fallopian tube where ectopic had ruptured. The fallopian tube was adhesed densely to the right ovary in multiple places. Sharp and blunt dissection was used to mobilize the tube from the ovary but this resulted in bleeding from the ovary and was unsuccessful at liberating the ovary from the tube. The harmonic scalpel was used to excise the right fallopian tube and ovary. An endo-bag was placed through the suprapubic trocar and the specimen placed in the bag. The bag was removed through the 11mm incision. The pelvis was irrigated thoroughly and cleared of all clot and debris. The right pedicle was hemostatic, but Ender was placed over it for additional hemostasis. The abdomen was then evacuated of gas and all trocars removed. The skin incisions were closed with 4-0 monocryl and Dermabond. The patient tolerated the procedure well. Sponge/lap/needle/instrument counts were correct at conclusion of procedure. The uterine manipulator was removed and she was taken out of lithotomy position and awakened from anesthesia, and was taken to the recovery room in stable condition. Condition: stable Disposition: PACU Specimens:: Right fallopian tube and ovary, with products of conception Complications:: none
--- NOTE | 2022-04-19 16:30 | PC.NURSE ---
1540-pt's at bedside, pt drinking water w/out difficulty, denies nausea, medicating for abdominal pain per eMAR, vss, pt stable
--- NOTE | 2022-04-19 16:34 | PC.NURSE ---
1554-pt transported to post op at this time, reports pain is easing, denies nausea, vss, at bedside, pt stable
== END 2022-04-19 16:27 | disposition home or self-care (01) ==
LOC: ER 12:51 → OB 13:22 → SDC 04-25 13:44
PROVIDERS: Obstetrics & Gynecology; PCP Family Medicine; Visit Provider Emergency Medicine
PROC: (CPT 58700; principal; 2022-04-19 13:30)
DX: O00.90 Unspecified ectopic pregnancy without intrauterine pregnancy (principal); K66.1 Hemoperitoneum; N97.1 Female infertility of tubal origin
CPT/HCPCS: 59151; 76817; 80053; 81001; 84702; 85025; 86850; 86900; 86901; 88305; 96374; C9803; J0131; J2405; U0003; U0005

== ENCOUNTER 2022-08-20 18:58 | Emergency (ER) | payer MEDICAID, SELFPAY ==
[2022-08-20] VITALS (8 sets, daily range): BP systolic 105–136; BP diastolic 54–83; PULSE 57–82; RESP 16–18; TEMP 36.8; O2SAT 97–100; BMI 20.2
--- NOTE | 2022-08-20 18:51 | ECG_ITS ---
APPROVED REPORT Exam: Resting ECG HR:73 bpm ECG Measurements Heart Rate 73 AXES AR 151 P 79 QRSd 89 QRS 55 QT 389 T 64 QTc 415 Conclusion SINUS RHYTHM NORMAL ECG UNCONFIRMED REPORT Electronically signed by : Juan Carlos Damico MD 08/21/2022 13:21:50
--- NOTE | 2022-08-20 19:04 | ECG_ITS ---
APPROVED REPORT Exam: Resting ECG HR:62 bpm ECG Measurements Heart Rate 62 AXES FL 158 P 72 QRSd 85 QRS 48 QT 406 T 54 QTc 411 Conclusion SINUS RHYTHM POSSIBLE LEFT ATRIAL ENLARGEMENT [-0.1mV P-WAVE IN V1/V2] POSSIBLE RIGHT VENTRICULAR CONDUCTION DELAY [RSR (QR) IN V1/V2] BORDERLINE ECG UNCONFIRMED REPORT Electronically signed by : Juan Carlos Damico MD 08/21/2022 13:21:47
--- NOTE | 2022-08-20 19:16 | PC.NURSE ---
JIGNESH VIEIRA speaking with dr. segura
--- NOTE | 2022-08-20 19:38 | XR_ITS ---
PROCEDURE INFORMATION: Exam: XR Chest Exam date and time: 08/20/2022 7:55 PM Age: 32 years old Clinical indication: Sternal or substernal pain; Patient HX: History of frequent anxiety attacks. ; Additional info: Chest pain TECHNIQUE: Imaging protocol: Radiologic exam of the chest. Views: 2 views. COMPARISON: CR XR CHEST PORTABLE 10/13/2021 6:45 PM FINDINGS: Lungs: Unremarkable. No consolidation. Pleural spaces: Unremarkable. No pleural effusion. No pneumothorax. Heart/Mediastinum: Unremarkable. No cardiomegaly. Bones/joints: Unremarkable. IMPRESSION: No acute cardiopulmonary abnormality.
[2022-08-20 19:46] LABS: Microscopic, Urine URINE MICROSCOPIC (MICROSCOPIC)
[2022-08-20 19:47] LABS: Appearance,Urine CLEAR (Clear); Basophils # 0.1 K/mm3 (0-0.2); Basophils % 0.9 % (0.1-2.0); Bilirubin,Urine Negative (Negative); Blood, Urine Negative (Negative); Color,Urine YELLOW (Yellow); Eosinophils # 0.1 K/mm3 (0.0-0.4); Eosinophils % 1.8 % (0.1-12.0); Glucose,Urine (UA) Negative (Negative); Hematocrit 40.5 % (37.0-47.0); Hemoglobin 13.7 g/dL (12.2-16.2); Ketones,Urine Negative (Negative); Leukocyte Esterase,Urine Negative (Negative); Lymphocytes # 2.1 K/mm3 (0.7-4.5); Lymphocytes % 26.8 % (10-50); Mean Corpuscular HGB Conc 33.8 g/dL (31.8-35.4); Mean Corpuscular Volume 97.7 fl (81-99); Mean Platelet Volume 8.2 fl (7.4-10.4); Monocytes # 0.3 K/mm3 (0.1-1.0); Monocytes % 4.1 % (1.7-9.3); Neutrophils # 5.1 K/mm3 (1.8-7.8); Neutrophils % 66.4 % (37.0-80.0); Nitrate,Urine Negative (Negative); PH,Urine 6.5 (5.0-8.5); Platelet Count 298 K/mm3 (142-424); Protein,Urine Negative (Negative); Red Blood Count 4.15 M/mm3 (4.20-5.40); Red Cell Distribution Width 12.7 % (11.5-17.5); Urobilinogen,Urine 0.2 EU/dl (0.2); White Blood Count 7.7 K/mm3 (4.8-10.8)
[2022-08-20 19:51] LABS: Urine Pregnancy, HCG Qual. Negative (Negative)
[2022-08-20 19:53] LABS: Alanine Aminotransferase 18 U/L (12-78); Albumin Level 4.7 g/dl (3.5-5.0); Albumin/Globulin Ratio 1.7 (1.1-1.8); Alkaline Phosphatase 63 U/L (38-126); Anion Gap 15.5 mEq/L (5-15); Aspartate Amino Transferase 28 U/L (14-36); Bilirubin,Total 0.4 mg/dl (0.2-1.3); Blood Urea Nitrogen 11 mg/dl (7-17); Calcium 10.5 mg/dl (8.4-10.2); Carbon Dioxide 26 mmol/L (22.0-30.0); Chloride 100 mmol/L (98-107); Creatinine Clearance Estimated 119 mL/min (50-200); Estimated Glomerular Filt Rate 117 ml/min (>60); GFR (African American) 141 ML/MIN (>60); Globulin 2.7 g/dL (1.3-3.2); Glucose 81 mg/dl (74-100); Potassium 3.5 mmoL/L (3.5-5.1); Sodium 138 mmol/L (136-145); Total Protein,Serum 7.4 g/dl (6.3-8.2)
[2022-08-20 20:12] LABS: Troponin I < 0.01 ng/ml (0.00-0.034)
[2022-08-20 20:27] LABS: C-Reactive Protein 0.4 mg/L (0-4)
[2022-08-20 20:31] LABS: Erythrocyte Sedimentation Rate 3 mm/hr (0-20)
[2022-08-20 20:57] LABS: Squamous Epithelial Cell,Urine Occasional #/hpf (0-5); WBC,Urine Occasional #/hpf (0-3)
--- NOTE | 2022-08-20 22:16 | CT_ITS ---
PROCEDURE INFORMATION: Exam: CTA Chest With Contrast Exam date and time: 08/20/2022 10:19 PM Age: 32 years old Clinical indication: Sternal or substernal pain; Additional info: Cp SOA TECHNIQUE: Imaging protocol: Computed tomographic angiography of the chest with contrast. 3D rendering (Not supervised by radiologist): MIP and/or 3D reconstructed images were created by the technologist. Radiation optimization: All CT scans at this facility use at least one of these dose optimization techniques: automated exposure control; mA and/or kV adjustment per patient size (includes targeted exams where dose is matched to clinical indication); or iterative reconstruction. Contrast material: ISOVUE; Contrast volume: 70 ml; Contrast route: INTRAVENOUS (IV); COMPARISON: CR XR CHEST 2V 08/20/2022 7:55 PM FINDINGS: Pulmonary arteries: Normal. No pulmonary emboli. Aorta: Unremarkable. No aortic aneurysm. No aortic dissection. Lungs: Unremarkable. No consolidation. No masses. Pleural spaces: Unremarkable. No pneumothorax. No pleural effusion. Heart: Unremarkable. No cardiomegaly. No pericardial effusion. Lymph nodes: Unremarkable. No enlarged lymph nodes. Bones/joints: Unremarkable. No acute fracture. Soft tissues: Unremarkable. IMPRESSION: No findings of acute pulmonary embolism. Clear lung parenchyma.
[2022-08-20 22:32] LABS: Troponin I < 0.01 ng/ml (0.00-0.034)
--- NOTE | 2022-08-20 22:53 | HMH.EDCP ---
Discharge Plan Disposition Patient Disposition: Home, Self-Care Chief Complaint: Chest Pain Prescriptions Prescriptions: No Action ondansetron 4 mg tablet,disintegrating 4 mg PO Q4H PRN (Reason: nausea and vomiting) Qty: 30 4RF Dulera 200-5 mcg/actuation HFA aerosol inhaler 2 puff IH BID Qty: 13 5RF albuterol sulfate 90 mcg/actuation HFA aerosol inhaler 1 inh IH QID PRN (Reason: wheezing) Qty: 8.5 5RF hydroxyzine HCl 25 mg tablet 25 mg PO TID PRN (Reason: anxiety) Qty: 30 1RF Referrals Follow up/Referrals: Provider,Referral, MD [Primary Care Provider] - See instructions Clinical Impressions Clinical Impression: Atypical chest pain Instructions Patient Instructions: DI for Atypical Chest Pain Discharge ED Provider: Marcus Talamantes Chest Pain HPI General Chief Complaint: Chest Pain Stated Complaint: chest pain Time Seen by Provider: 08/20/22 21:15 Mode of Arrival: Ambulatory Source of Information: Patient and Medical Record Limitations: No Limitations Description of Symptoms (Recalled from ER Triage Doc. by RN): pt states that she has a chest pain she stated that she gets chest pain frequantly but this pain is different the pt states the pain is radiating through to her back and she has tingling in her left arm and then gets a cool feelig in her hand this feeling is not constant and relieves on its own then comes back. the pt has a hx of anxiety but states again she has a hx of chest pain and was told not to wait over an hour if the pain is consistant History of Present Illness HPI narrative: acute onset of midsternal sharp chest rad through to back while at rest - no known ht dis and no recent viral illness MD complaint: chest pain indicative of cardiac Onset (ago): hour(s) Duration: intermittent Activity at onset: during rest Pain location: epigastric Severity: moderate Quality: sharp Pain radiation: back Relieving factors: nothing Risk Factors for CAD: Family Hx of CAD and Smoking Treatments prior to or on arrival for Cardiac Chest Pain: none BOY Score for Non-Stemi Age of Patient: 30-39 years old Heart Rate: 70-89 bpm Systolic Blood Pressure: 120-139 mmhg Serum Creatinine: 0.40-0.79 mg/dl CHF [place] Class: I-No CHF Other Risk Factors: None Non-Stemi Risk Score: 55 Related Data On Oral Contraceptives: No Previous Rx's Medication Instructions Recorded ondansetron 4 mg disintegrating 4 mg PO Q4H PRN nausea and 04/15/22 tablet vomiting #30 tabs albuterol sulfate 90 mcg/actuation 1 inh inhalation QID PRN wheezing 05/01/22 aerosol inhaler #8.5 grams mometasone-formoterol HFA 200 2 puff inhalation BID #13 grams 05/01/22 mcg-5 mcg/actuation aerosol inhaler (Dulera) hydroxyzine HCl 25 mg tablet 25 mg PO TID PRN anxiety #30 tabs 06/17/22 Allergies Allergy/AdvReac Type Severity Reaction Status Date / Time amoxicillin [From Augmentin] Allergy Verified 05/01/22 11:41 clavulanic acid Allergy Verified 05/01/22 11:41 [From Augmentin] [facility] Social History Smoking Status: Smoker, status unknown tobacco type: cigarettes packs per day: 1 alcohol intake: never substance use type: denies use current occupational status: employed Travel in the last 8 weeks: None household members: spouse and family housing: house 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
== END 2022-08-20 23:06 | disposition home or self-care (01) ==
PROVIDERS: Emergency Medicine; Emergency Provider Emergency Medicine
DX: R07.89 Other chest pain (principal)
CPT/HCPCS: 71046; 71275; 80053; 81001; 81025; 84484; 85025; 85651; 86140; 93005; 96374; 96375; 99285; Q9967

== ENCOUNTER → 2022-10-24 06:43 | Outpatient (CLI) | payer MEDICAID, SELFPAY ==
[2022-10-24 18:41] LABS: Basophils # 0.1 K/mm3 (0-0.2); Basophils % 0.8 % (0.1-2.0); Eosinophils # 0.1 K/mm3 (0.0-0.4); Eosinophils % 1.8 % (0.1-12.0); Hematocrit 41.3 % (37.0-47.0); Hemoglobin 13.4 g/dL (12.2-16.2); Lymphocytes # 2.1 K/mm3 (0.7-4.5); Lymphocytes % 26.2 % (10-50); Mean Corpuscular HGB Conc 32.4 g/dL (31.8-35.4); Mean Corpuscular Hemoglobin 31.3 pg (27.0-31.2); Mean Corpuscular Volume 96.5 fl (81-99); Mean Platelet Volume 8.2 fl (7.4-10.4); Monocytes # 0.3 K/mm3 (0.1-1.0); Neutrophils # 5.3 K/mm3 (1.8-7.8); Neutrophils % 67.2 % (37.0-80.0); Platelet Count 371 K/mm3 (142-424); Red Blood Count 4.28 M/mm3 (4.20-5.40); Red Cell Distribution Width 12.6 % (11.5-17.5); White Blood Count 7.8 K/mm3 (4.8-10.8)
[2022-10-24 18:43] LABS: Chloride 105 mmol/L (98-107)
[2022-10-24 18:44] LABS: Potassium 3.7 mmoL/L (3.5-5.1); Sodium 138 mmol/L (136-145)
[2022-10-24 18:46] LABS: Alanine Aminotransferase 16 U/L (12-78); Alkaline Phosphatase 46 U/L (38-126); Anion Gap 11.7 mEq/L (5-15); Aspartate Amino Transferase 22 U/L (14-36); Bilirubin,Total 0.5 mg/dl (0.2-1.3); Blood Urea Nitrogen 7 mg/dl (7-17); Carbon Dioxide 25 mmol/L (22.0-30.0); Estimated Glomerular Filt Rate 117 ml/min (>60); GFR (African American) 141 ML/MIN (>60)
[2022-10-24 18:47] LABS: Albumin Level 4.5 g/dl (3.5-5.0); Albumin/Globulin Ratio 1.7 (1.1-1.8); Calcium 8.8 mg/dl (8.4-10.2); Globulin 2.6 g/dL (1.3-3.2); Glucose 93 mg/dl (74-100); Total Protein,Serum 7.1 g/dl (6.3-8.2)
[2022-10-24 19:10] LABS: 25-OH Vitamin D, Total 17.7 ng/mL (30-100)
[2022-10-24 19:14] LABS: Thyroid Stimulating Hormone 2.62 uIU/mL (0.465-4.68)
[2022-10-24 22:28] LABS: Vitamin B12 591 pg/mL (239-931)
== END ==
PROVIDERS: PCP Nurse Practitioner; Visit Provider Nurse Practitioner
DX: F31.9 Bipolar disorder, unspecified (principal); F41.1 Generalized anxiety disorder; E55.9 Vitamin D deficiency, unspecified; Z13.21 Encounter for screening for nutritional disorder; Z13.29 Encounter for screening for other suspected endocrine disorder; Z79.899 Other long term (current) drug therapy
CPT/HCPCS: 80053; 82306; 82607; 84443; 85025

== ENCOUNTER 2022-12-04 17:59 | Emergency (ER) | payer MEDICAID, SELFPAY ==
--- NOTE | 2022-12-04 17:59 | ECG_ITS ---
APPROVED REPORT Exam: Resting ECG HR:76 bpm ECG Measurements Heart Rate 76 AXES NJ 158 P 69 QRSd 89 QRS 36 QT 382 T 44 QTc 413 Conclusion SINUS RHYTHM WITH SINUS ARRHYTHMIA NORMAL ECG UNCONFIRMED REPORT Electronically signed by : Juan Carlos Damico MD 12/06/2022 08:59:24
[2022-12-04 18:01] VITALS: BP 147/100; PULSE 90; RESP 18; TEMP 37.3; O2SAT 100
--- NOTE | 2022-12-04 18:05 | PC.NURSE ---
7148 DR RAMSAY AT BEDSIDE FOR EVALUATION
--- NOTE | 2022-12-04 18:06 | XR_ITS ---
PROCEDURE INFORMATION: Exam: XR Chest Exam date and time: 12/04/2022 6:36 PM Age: 32 years old Clinical indication: Sternal or substernal pain; Patient HX: Infrequent chest pain for four days. Former smoker. ; Additional info: Cp TECHNIQUE: Imaging protocol: Radiologic exam of the chest. Views: 1 view. Total images: 1 COMPARISON: CR XR CHEST 2V 08/20/2022 7:55 PM FINDINGS: Lungs: Unremarkable. No consolidation. Pleural spaces: Unremarkable. No pleural effusion. No pneumothorax. Heart/Mediastinum: Unremarkable. No cardiomegaly. Bones/joints: Unremarkable. IMPRESSION: No acute findings.
[2022-12-04 18:17] LABS: Basophils # 0.1 K/mm3 (0-0.2); Basophils % 0.9 % (0.1-2.0); Eosinophils # 0.1 K/mm3 (0.0-0.4); Hematocrit 38.3 % (37.0-47.0); Lymphocytes # 2.3 K/mm3 (0.7-4.5); Lymphocytes % 24.2 % (10-50); Mean Corpuscular HGB Conc 33.9 g/dL (31.8-35.4); Mean Corpuscular Hemoglobin 31.3 pg (27.0-31.2); Mean Corpuscular Volume 92.3 fl (81-99); Mean Platelet Volume 8.1 fl (7.4-10.4); Monocytes # 0.4 K/mm3 (0.1-1.0); Monocytes % 4.2 % (1.7-9.3); Neutrophils # 6.7 K/mm3 (1.8-7.8); Neutrophils % 69.6 % (37.0-80.0); Platelet Count 327 K/mm3 (142-424); Red Blood Count 4.15 M/mm3 (4.20-5.40); Red Cell Distribution Width 12.6 % (11.5-17.5); White Blood Count 9.6 K/mm3 (4.8-10.8)
[2022-12-04 18:27] LABS: Alanine Aminotransferase 18 U/L (12-78); Albumin Level 4.7 g/dl (3.5-5.0); Albumin/Globulin Ratio 1.6 (1.1-1.8); Alkaline Phosphatase 70 U/L (38-126); Anion Gap 11.3 mEq/L (5-15); Aspartate Amino Transferase 29 U/L (14-36); Bilirubin,Total 0.6 mg/dl (0.2-1.3); Blood Urea Nitrogen 8 mg/dl (7-17); Calcium 9.3 mg/dl (8.4-10.2); Carbon Dioxide 25 mmol/L (22.0-30.0); Chloride 105 mmol/L (98-107); Creatinine Clearance Estimated 117 mL/min (50-200); Estimated Glomerular Filt Rate 117 ml/min (>60); GFR (African American) 141 ML/MIN (>60); Globulin 2.9 g/dL (1.3-3.2); Glucose 90 mg/dl (74-100); Potassium 3.3 mmoL/L (3.5-5.1); Sodium 138 mmol/L (136-145); Total Protein,Serum 7.6 g/dl (6.3-8.2)
[2022-12-04 18:30] VITALS: BP 135/104; PULSE 76; RESP 14; O2SAT 98
[2022-12-04 18:33] LABS: D-Dimer 0.69 ug/mL (0.0-0.5)
[2022-12-04 18:42] LABS: Troponin I < 0.01 ng/ml (0.00-0.034)
[2022-12-04 19:00] VITALS: BP 138/98; PULSE 77; RESP 18; O2SAT 100
--- NOTE | 2022-12-04 19:08 | CT_ITS ---
PROCEDURE INFORMATION: Exam: CTA Chest With Contrast Exam date and time: 12/04/2022 7:38 PM Age: 32 years old Clinical indication: Sternal or substernal pain; Patient HX: Chest pain, elevated d-dimer. ; Additional info: Cp TECHNIQUE: Imaging protocol: Computed tomographic angiography of the chest with contrast. 3D rendering (Not supervised by radiologist): MIP and/or 3D reconstructed images were created by the technologist. Radiation optimization: All CT scans at this facility use at least one of these dose optimization techniques: automated exposure control; mA and/or kV adjustment per patient size (includes targeted exams where dose is matched to clinical indication); or iterative reconstruction. Contrast material: ISOVUE 370; Contrast volume: 70 ml; Contrast route: INTRAVENOUS (IV); Other protocol: This patient has received [address] and 0 known cardiac nuclear medicine studies in the 12 months prior to the current study. COMPARISON: CT ANGIO CHEST PE PROTOCOL 08/20/2022 10:19 PM FINDINGS: Pulmonary arteries: Normal. No pulmonary emboli. Aorta: No aortic aneurysm. No aortic dissection. Lungs: Minimal cystic change which is stable. No consolidation. No masses. Pleural spaces: No pneumothorax. No pleural effusion. Heart: No cardiomegaly. No pericardial effusion. Lymph nodes: No enlarged lymph nodes. Bones/joints: Mild scoliosis. No acute fracture. Soft tissues: No significant swelling. IMPRESSION: No acute findings.
--- NOTE | 2022-12-04 19:09 | PC.NURSE ---
DR RAMSAY AT BEDSIDE
--- NOTE | 2022-12-04 19:12 | HMH.EDCP ---
Discharge Plan Disposition Patient Disposition: Home, Self-Care Condition: Good Prescriptions Prescriptions: New potassium chloride 20 mEq tablet,ER particles/crystals 20 meq PO DAILY Qty: 5 0RF No Action ondansetron 4 mg tablet,disintegrating 4 mg PO Q4H PRN (Reason: nausea and vomiting) Qty: 30 4RF hydroxyzine HCl 25 mg tablet 25 mg PO QID PRN (Reason: anxiety) Qty: 60 2RF olanzapine 5 mg tablet 5 mg PO DAILY Qty: 30 2RF buspirone 10 mg tablet 10 mg PO TID PRN (Reason: anxiety) Qty: 60 2RF Dulera 200-5 mcg/actuation HFA aerosol inhaler 2 puff IH BID Qty: 13 5RF albuterol sulfate 90 mcg/actuation HFA aerosol inhaler 1 inh IH QID PRN (Reason: wheezing) Qty: 8.5 5RF cholecalciferol (vitamin D3) 125 mcg (5,000 unit) tablet 125 mcg PO DAILY Qty: 30 5RF Referrals Follow up/Referrals: Natalie Koch APRN [Primary Care Provider] - See instructions Activity Restrictions/Add. Instructions Additional Instructions/Restrictions: Avoid exertion. Have your potassium level rechecked next week by primary care provider. Clinical Impressions Clinical Impression: Acute chest pain, Acute hypokalemia Discharge ED Provider: Christopher Hoover Chest Pain HPI General Chief Complaint: Chest Pain Stated Complaint: CP Time Seen by Provider: 12/04/22 20:04 Mode of Arrival: Ambulatory Limitations: No Limitations Description of Symptoms (Recalled from ER Triage Doc. by RN): PT WITH DIFFUSE CHEST PAIN X 4 DAYS. History of Present Illness HPI narrative: Patient presents with a 4-day history of chest discomfort. The discomfort was initially intermittent and over the last day or so has now become continuous. She states at one point was worse with walking earlier today. She denies recent fever or productive cough. Pain described as moderate at worst. There is no associated vomiting, or diaphoresis or dyspnea. Related Data Previous Rx's Medication Instructions Recorded ondansetron 4 mg disintegrating 4 mg PO Q4H PRN nausea and 04/15/22 tablet vomiting #30 tabs albuterol sulfate 90 mcg/actuation 1 inh inhalation QID PRN wheezing 05/01/22 aerosol inhaler #8.5 grams mometasone-formoterol HFA 200 2 puff inhalation BID #13 grams 05/01/22 mcg-5 mcg/actuation aerosol inhaler (Dulera) buspirone 10 mg tablet 10 mg PO TID PRN anxiety #60 tabs 10/24/22 hydroxyzine HCl 25 mg tablet 25 mg PO QID PRN anxiety #60 tabs 10/24/22 olanzapine 5 mg tablet 5 mg PO DAILY #30 tabs 10/24/22 cholecalciferol (vitamin D3) 125 125 mcg PO DAILY #30 tabs 11/05/22 mcg (5,000 unit) tablet potassium chloride 20 mEq 20 meq PO DAILY #5 tabs 12/04/22 tablet,extended release(part/cryst) Allergies Allergy/AdvReac Type Severity Reaction Status Date / Time amoxicillin [From Augmentin] Allergy Verified 10/24/22 14:52 clavulanic acid Allergy Verified 10/24/22 14:52 [From Augmentin] [facility] Disclaimer: The information contained in this section may have been updated after the patient was seen, as this information can be updated by other users. 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
[2022-12-04 19:28] LABS: HCG Qualitative, Serum Negative (Negative)
[2022-12-04 20:19] VITALS: BP 138/98; PULSE 78; RESP 18; TEMP 36.6; O2SAT 99
== END 2022-12-04 20:21 | disposition home or self-care (01) ==
PROVIDERS: Emergency Provider Emergency Medicine; PCP Nurse Practitioner
DX: R07.89 Other chest pain (principal); E87.6 Hypokalemia; F31.9 Bipolar disorder, unspecified
CPT/HCPCS: 71045; 71275; 80053; 84484; 84703; 85025; 85378; 93005; 99285; Q9967

== ENCOUNTER → 2022-12-09 23:47 | Outpatient (CLI) | payer MEDICAID, SELFPAY ==
[2022-12-09 19:07] LABS: Basophils # 0.1 K/mm3 (0-0.2); Basophils % 0.4 % (0.1-2.0); Eosinophils # 0.2 K/mm3 (0.0-0.4); Eosinophils % 1.5 % (0.1-12.0); Hematocrit 39.5 % (37.0-47.0); Hemoglobin 12.8 g/dL (12.2-16.2); Lymphocytes % 14.9 % (10-50); Mean Corpuscular HGB Conc 32.3 g/dL (31.8-35.4); Mean Corpuscular Hemoglobin 30.6 pg (27.0-31.2); Mean Corpuscular Volume 94.7 fl (81-99); Mean Platelet Volume 8.4 fl (7.4-10.4); Monocytes # 0.4 K/mm3 (0.1-1.0); Monocytes % 3.3 % (1.7-9.3); Neutrophils # 10.5 K/mm3 (1.8-7.8); Neutrophils % 79.9 % (37.0-80.0); Platelet Count 304 K/mm3 (142-424); Red Blood Count 4.18 M/mm3 (4.20-5.40); White Blood Count 13.2 K/mm3 (4.8-10.8)
[2022-12-09 19:28] LABS: Alanine Aminotransferase 15 U/L (12-78); Albumin Level 4.5 g/dl (3.5-5.0); Albumin/Globulin Ratio 1.7 (1.1-1.8); Alkaline Phosphatase 52 U/L (38-126); Anion Gap 9.1 mEq/L (5-15); Aspartate Amino Transferase 22 U/L (14-36); Bilirubin,Total 0.6 mg/dl (0.2-1.3); Blood Urea Nitrogen 12 mg/dl (7-17); Calcium 8.7 mg/dl (8.4-10.2); Carbon Dioxide 19 mmol/L (22.0-30.0); Chloride 109 mmol/L (98-107); Estimated Glomerular Filt Rate 98 ml/min (>60); GFR (African American) 118 ML/MIN (>60); Globulin 2.7 g/dL (1.3-3.2); Glucose 84 mg/dl (74-100); Potassium 4.1 mmoL/L (3.5-5.1); Sodium 133 mmol/L (136-145); Total Protein,Serum 7.2 g/dl (6.3-8.2)
== END ==
PROVIDERS: PCP Nurse Practitioner; Visit Provider Nurse Practitioner
DX: D72.829 Elevated white blood cell count, unspecified (principal); R10.13 Epigastric pain
CPT/HCPCS: 80053; 85025; 86677

== ENCOUNTER → 2022-12-12 11:00 | Outpatient (CLI) | payer MEDICAID, SELFPAY ==
[2022-12-12 18:54] LABS: Basophils % 0.4 % (0.1-2.0); Eosinophils # 0.1 K/mm3 (0.0-0.4); Eosinophils % 0.9 % (0.1-12.0); Hematocrit 43.7 % (37.0-47.0); Hemoglobin 13.5 g/dL (12.2-16.2); Lymphocytes # 1.2 K/mm3 (0.7-4.5); Lymphocytes % 11.9 % (10-50); Mean Corpuscular HGB Conc 30.8 g/dL (31.8-35.4); Mean Corpuscular Hemoglobin 30.5 pg (27.0-31.2); Mean Corpuscular Volume 98.9 fl (81-99); Mean Platelet Volume 8.2 fl (7.4-10.4); Monocytes # 0.5 K/mm3 (0.1-1.0); Neutrophils # 8.4 K/mm3 (1.8-7.8); Neutrophils % 81.7 % (37.0-80.0); Platelet Count 359 K/mm3 (142-424); Red Blood Count 4.42 M/mm3 (4.20-5.40); Red Cell Distribution Width 13.1 % (11.5-17.5); White Blood Count 10.3 K/mm3 (4.8-10.8)
== END ==
PROVIDERS: PCP Nurse Practitioner; Visit Provider Nurse Practitioner
DX: D72.829 Elevated white blood cell count, unspecified (principal)
CPT/HCPCS: 85025

== ENCOUNTER → 2023-01-01 22:47 | Outpatient (CLI) | payer MEDICAID, SELFPAY ==
[2023-01-01 18:16] LABS: Adenovirus,PCR Not Detected (NotDetected); Bordetella Pertussis Not Detected (NotDetected); Chlamydophila Pneumoniae, PCR Not Detected (NotDetected); Coronavirus 19, PCR Not Detected (NotDetected); Coronavirus 229E Not Detected (NotDetected); Coronavirus NL63 Not Detected (NotDetected); Coronavirus OC43 Not Detected (NotDetected); Coronovirus HKU1,PCR Not Detected (NotDetected); Human Metapneumovirus Not Detected (NotDetected); Influenza A, PCR Not Detected (NotDetected); Influenza AH1, 2009 Not Detected (NotDetected); Influenza AH1, PCR Not Detected (NotDetected); Influenza AH3,PCR Not Detected (NotDetected); Influenza B, PCR Not Detected (NotDetected); Microscopic, Urine URINE MICROSCOPIC (MICROSCOPIC); Mycoplasma Pneumoniae, PCR Not Detected (NotDetected); Parainfluenza 1, PCR Not Detected (NotDetected); Parainfluenza 2, PCR Not Detected (NotDetected); Parainfluenza 3, PCR Not Detected (NotDetected); Parainfluenza 4, PCR Not Detected (NotDetected); Respiratory Syncytial Virus Not Detected (NotDetected); Rhinovirus/Enterovirus Not Detected (NotDetected)
[2023-01-01 18:26] LABS: Basophils % 0.7 % (0.1-2.0); Eosinophils # 0.1 K/mm3 (0.0-0.4); Eosinophils % 2.5 % (0.1-12.0); Hematocrit 41.7 % (37.0-47.0); Hemoglobin 13.3 g/dL (12.2-16.2); Lymphocytes # 1.1 K/mm3 (0.7-4.5); Lymphocytes % 19.9 % (10-50); Mean Corpuscular HGB Conc 31.8 g/dL (31.8-35.4); Mean Corpuscular Hemoglobin 30.7 pg (27.0-31.2); Mean Corpuscular Volume 96.6 fl (81-99); Mean Platelet Volume 9.3 fl (7.4-10.4); Monocytes # 0.2 K/mm3 (0.1-1.0); Monocytes % 4.2 % (1.7-9.3); Neutrophils # 4.1 K/mm3 (1.8-7.8); Neutrophils % 72.7 % (37.0-80.0); Platelet Count 313 K/mm3 (142-424); Red Blood Count 4.32 M/mm3 (4.20-5.40); Red Cell Distribution Width 12.8 % (11.5-17.5); White Blood Count 5.6 K/mm3 (4.8-10.8)
[2023-01-01 18:28] LABS: Alanine Aminotransferase 13 U/L (12-78); Albumin Level 4.1 g/dl (3.5-5.0); Albumin/Globulin Ratio 1.7 (1.1-1.8); Alkaline Phosphatase 47 U/L (38-126); Anion Gap 9.3 mEq/L (5-15); Appearance,Urine CLEAR (Clear); Aspartate Amino Transferase 19 U/L (14-36); Bilirubin,Total 0.5 mg/dl (0.2-1.3); Bilirubin,Urine Negative (Negative); Blood Urea Nitrogen 9 mg/dl (7-17); Blood, Urine 1+ (Negative); Calcium 8.7 mg/dl (8.4-10.2); Carbon Dioxide 26 mmol/L (22.0-30.0); Chloride 104 mmol/L (98-107); Color,Urine YELLOW (Yellow); Estimated Glomerular Filt Rate 117 ml/min (>60); GFR (African American) 141 ML/MIN (>60); Globulin 2.4 g/dL (1.3-3.2); Glucose 93 mg/dl (74-100); Glucose,Urine (UA) Negative (Negative); Ketones,Urine Negative (Negative); Leukocyte Esterase,Urine Negative (Negative); Nitrate,Urine Negative (Negative); PH,Urine 6.5 (5.0-8.5); Potassium 4.3 mmoL/L (3.5-5.1); Protein,Urine Negative (Negative); Sodium 135 mmol/L (136-145); Total Protein,Serum 6.5 g/dl (6.3-8.2); Uric Acid 3.1 mg/dl (2.5-6.2); Urobilinogen,Urine 0.2 EU/dl (0.2)
[2023-01-01 18:33] LABS: C-Reactive Protein 0.6 mg/L (0-4)
[2023-01-01 18:48] LABS: HCG,Quantitative < 2 mIU/ml (0-5.42)
[2023-01-01 18:56] LABS: Erythrocyte Sedimentation Rate 4 mm/hr (0-20)
[2023-01-01 19:51] LABS: Squamous Epithelial Cell,Urine Occasional #/hpf (0-5); Triple Phosphate Crystal,Urine 1+ /lpf; WBC,Urine Occasional #/hpf (0-3)
[2023-01-03 13:50] LABS: RA Latex Turbid. <10.0 IU/mL (<14.0)
[2023-01-03 17:07] LABS: Anti-Centromere B Antibodies <0.2 AI (0.0-0.9); Anti-DNA (DS) Ab Qn 1 IU/mL (0-9); Anti-Jo-1 <0.2 AI (0.0-0.9); Anti-Smith Antibody <0.2 AI (0.0-0.9); Antichromatin Antibodies 0.3 AI (0.0-0.9); Antiscleroderma-70 Antibodies <0.2 AI (0.0-0.9); RNP Antibodies <0.2 AI (0.0-0.9); Sjogren's Anti-SS-A <0.2 AI (0.0-0.9); Sjogren's Anti-SS-B <0.2 AI (0.0-0.9)
[2023-01-06 17:23] LABS: Antinuclear Antibodies, IFA Negative (.)
== END ==
PROVIDERS: PCP Nurse Practitioner; Visit Provider Nurse Practitioner
DX: R07.9 Chest pain, unspecified (principal); R10.13 Epigastric pain; D72.829 Elevated white blood cell count, unspecified; F41.1 Generalized anxiety disorder; M94.0 Chondrocostal junction syndrome [Tietze]; J45.901 Unspecified asthma with (acute) exacerbation; N93.8 Other specified abnormal uterine and vaginal bleeding
CPT/HCPCS: 80053; 81001; 84550; 84702; 85025; 85651; 86038; 86140; 86225; 86235; 86431; 86677; 87581; 87632; 87798; C9803; U0003; U0005

== ENCOUNTER 2023-01-08 22:48 | Emergency (ER) | payer MEDICAID, SELFPAY ==
[2023-01-08 22:48] VITALS: BP 124/86; PULSE 79; RESP 16; TEMP 36.9; O2SAT 99; BMI 20.2
--- NOTE | 2023-01-08 22:48 | ECG_ITS ---
APPROVED REPORT Exam: Resting ECG HR:77 bpm ECG Measurements Heart Rate 77 AXES FL 161 P 75 QRSd 90 QRS 63 QT 369 T 68 QTc 401 Conclusion SINUS RHYTHM Normal ECG UNCONFIRMED REPORT Electronically signed by : Juan Carlos Damico MD 01/09/2023 16:54:30
--- NOTE | 2023-01-08 22:51 | XR_ITS ---
PROCEDURE INFORMATION: Exam: XR Chest Exam date and time: 01/08/2023 11:05 PM Age: 32 years old Clinical indication: Radiating; Patient HX: C/O chest pain that radiates posteriorly; Additional info: Cp TECHNIQUE: Imaging protocol: Radiologic exam of the chest. Views: 2 views. COMPARISON: CR XR CHEST PORTABLE 12/04/2022 6:36 PM FINDINGS: Lungs: Unremarkable. No consolidation. Pleural spaces: Unremarkable. No pleural effusion. No pneumothorax. Heart/Mediastinum: Unremarkable. No cardiomegaly. Bones/joints: Unremarkable. IMPRESSION: No acute findings.
[2023-01-08 23:11] LABS: Blood Urea Nitrogen 13 mg/dl (7-17); Calcium 7.8 mg/dl (8.4-10.2); Carbon Dioxide 23 mmol/L (22.0-30.0); Chloride 105 mmol/L (98-107); Creatinine Clearance Estimated 142 mL/min (50-200); Estimated Glomerular Filt Rate 144 ml/min (>60); GFR (African American) 174 ML/MIN (>60); Glucose 107 mg/dl (74-100); Sodium 134 mmol/L (136-145)
[2023-01-08 23:13] LABS: Basophils # 0.1 K/mm3 (0-0.2); Basophils % 0.4 % (0.1-2.0); Eosinophils # 0.3 K/mm3 (0.0-0.4); Eosinophils % 1.8 % (0.1-12.0); Hematocrit 36.3 % (37.0-47.0); Hemoglobin 12.4 g/dL (12.2-16.2); Lymphocytes # 1.8 K/mm3 (0.7-4.5); Lymphocytes % 10.3 % (10-50); Mean Corpuscular Hemoglobin 32.5 pg (27.0-31.2); Mean Corpuscular Volume 95.4 fl (81-99); Mean Platelet Volume 8.3 fl (7.4-10.4); Monocytes # 0.7 K/mm3 (0.1-1.0); Neutrophils # 14.7 K/mm3 (1.8-7.8); Neutrophils % 83.5 % (37.0-80.0); Platelet Count 306 K/mm3 (142-424); White Blood Count 17.6 K/mm3 (4.8-10.8)
[2023-01-08 23:18] LABS: MANUAL DIFFERENTIAL MANUAL DIFFERENTIAL (MANUAL DIFF)
[2023-01-08 23:27] LABS: Troponin I < 0.01 ng/ml (0.00-0.034)
[2023-01-08 23:30] VITALS: BP 122/88; PULSE 87; RESP 15; O2SAT 98
[2023-01-08 23:31] LABS: D-Dimer 0.82 ug/mL (0.0-0.5)
--- NOTE | 2023-01-08 23:42 | HMH.EDGENADL ---
Discharge Plan Disposition Patient Disposition: Home, Self-Care Condition: Good Chief Complaint: Chest Pain Prescriptions Prescriptions: No Action ondansetron 4 mg tablet,disintegrating 4 mg PO Q4H PRN (Reason: nausea and vomiting) Qty: 30 4RF buspirone 10 mg tablet 10 mg PO TID PRN (Reason: anxiety) Qty: 60 2RF naproxen 500 mg tablet 500 mg PO DAILY risperidone 0.5 mg tablet 0.5 - 1 mg PO BID PRN (Reason: anxiety or sleep) Qty: 60 0RF lidocaine 5 % adhesive patch,medicated 3 patch topical DAILY PRN (Reason: pain) Qty: 30 1RF Rx Instructions: leave on most painful area for up to 12 hrs albuterol sulfate 90 mcg/actuation HFA aerosol inhaler 1 inh IH QID PRN (Reason: wheezing) Qty: 8.5 5RF hydroxyzine HCl 25 mg tablet 25 mg PO QID PRN (Reason: anxiety) Qty: 60 2RF cetirizine 10 mg tablet 10 mg PO DAILY olanzapine 5 mg tablet See Rx Instructions .ROUTE .COMPLEX Rx Instructions: TAKE 1 TABLET BY MOUTH EVERY DAY omeprazole 40 mg capsule,delayed release(DR/EC) 40 mg PO DAILY cholecalciferol (vitamin D3) 125 mcg (5,000 unit) tablet 125 mcg PO DAILY Dulera 200-5 mcg/actuation HFA aerosol inhaler 2 puff IH BID Referrals Follow up/Referrals: Natalie Koch APRN [Primary Care Provider] - See instructions Clinical Impressions Clinical Impression: Acute chest pain Instructions Patient Instructions: DI for Atypical Chest Pain Print Language Print Language: Dutch Discharge ED Provider: Jamshid Feng General Adult HPI General Chief complaint: Chest Pain Stated complaint: chest pain Time Seen by Provider: 01/09/23 01:07 Mode of Arrival: EMS Source of Information: Patient Limitations: No Limitations Description of Symptoms (Recalled from ER Triage Doc. by RN): pt c/o midsternal cp that radiates to back that started @ 6:30 pm that comes in waves. pt states she took 324mg ASA when pain started History of Present Illness HPI narrative: Patient presents to the emergency department with chest pain radiating into her back between her left shoulder blade to the medial border of her left scapula. She states it is slightly worse with deep inspiration. States that it was a sudden onset just earlier tonight. Denies any fever, chills, cough, congestion, nausea, vomiting. She does describe previous history of chest pain but describes this being different. Denies any chest trauma Related Data Home Medications Medication Instructions Recorded Confirmed naproxen 500 mg tablet 500 mg PO DAILY Pain 12/09/22 01/08/23 cetirizine 10 mg tablet 10 mg PO DAILY Allergy symptoms 01/08/23 01/08/23 cholecalciferol (vitamin D3) 125 125 mcg PO DAILY Supplement 01/08/23 01/08/23 mcg (5,000 unit) tablet mometasone-formoterol HFA 200 2 puff inhalation BID Breathing 01/08/23 01/08/23 mcg-5 mcg/actuation aerosol problems inhaler (Dulera) olanzapine 5 mg tablet See Rx Instructions .Route 01/08/23 01/08/23 .COMPLEX Depression omeprazole 40 mg capsule,delayed 40 mg PO DAILY gerd 01/08/23 01/08/23 release Previous Rx's Medication Instructions Recorded ondansetron 4 mg disintegrating 4 mg PO Q4H PRN nausea and 04/15/22 tablet vomiting #30 tabs buspirone 10 mg tablet 10 mg PO TID PRN anxiety #60 tabs 10/24/22 lidocaine 5 % topical patch 3 patch topical DAILY PRN pain #30 12/26/22 ea risperidone 0.5 mg tablet 0.5 - 1 mg PO BID PRN anxiety or 12/26/22 sleep #60 tabs albuterol sulfate 90 mcg/actuation 1 inh inhalation QID PRN wheezing 01/01/23 aerosol inhaler #8.5 grams hydroxyzine HCl 25 mg tablet 25 mg PO QID PRN anxiety #60 tabs 01/01/23 Allergies Allergy/AdvReac Type Severity Reaction Status Date / Time amoxicillin [From Augmentin] Allergy Verified 01/06/23 08:31 clavulanic acid Allergy Verified 01/06/23 08:31 [From Augmentin] [facility] Disclaimer: The information contained in this section may have been updated aft
[2023-01-09] VITALS: BP 123/81; PULSE 73; RESP 17; O2SAT 98
--- NOTE | 2023-01-09 | CT_ITS ---
PROCEDURE INFORMATION: Exam: CTA Chest With Contrast Exam date and time: 01/09/2023 12:45 AM Age: 32 years old Clinical indication: Abnormal findings; Abnormal diagnostic tests; Elevated d-dimer; Additional info: Cp, elevated dimer TECHNIQUE: Imaging protocol: Computed tomographic angiography of the chest with contrast. 3D rendering (Not supervised by radiologist): MIP and/or 3D reconstructed images were created by the technologist. Radiation optimization: All CT scans at this facility use at least one of these dose optimization techniques: automated exposure control; mA and/or kV adjustment per patient size (includes targeted exams where dose is matched to clinical indication); or iterative reconstruction. Contrast material: ISOVUE; Contrast volume: 70 ml; Contrast route: INTRAVENOUS (IV); REPORTING DATA: Count of CT and Cardiac NM exams in prior 12 months: This patient has received 2 known CTs and 0 known cardiac nuclear medicine studies in the 12 months prior to the current study. COMPARISON: CT ANGIO CHEST PE PROTOCOL 12/04/2022 7:38 PM FINDINGS: Pulmonary arteries: Normal. No pulmonary emboli. Aorta: Unremarkable. No aortic aneurysm. No aortic dissection. Lungs: Unremarkable. No consolidation. No masses. Pleural spaces: Unremarkable. No pneumothorax. No pleural effusion. Heart: Unremarkable. No cardiomegaly. No pericardial effusion. Lymph nodes: Unremarkable. No enlarged lymph nodes. Bones/joints: Unremarkable. No acute fracture. Soft tissues: Unremarkable. IMPRESSION: No acute findings.
[2023-01-09 00:03] LABS: HCG Qualitative, Serum Negative (Negative)
[2023-01-09 00:26] LABS: Eosinophils % 2 % (0-3); Lymphocytes % 13 % (10-50); Monocytes % 1 % (2-9); Neutrophils % 84 % (42-76); Platelet Estimate Normal; RBC Morphology Normal; Total Cells Counted 100
[2023-01-09 00:30] VITALS: BP 122/82; PULSE 80; RESP 15; O2SAT 97
--- NOTE | 2023-01-09 01:33 | [facility].EDGENADL ---
Discharge Plan Disposition Patient Disposition: Home, Self-Care Condition: Good Prescriptions Prescriptions: No Action ondansetron 4 mg tablet,disintegrating 4 mg PO Q4H PRN (Reason: nausea and vomiting) Qty: 30 4RF buspirone 10 mg tablet 10 mg PO TID PRN (Reason: anxiety) Qty: 60 2RF naproxen 500 mg tablet 500 mg PO DAILY risperidone 0.5 mg tablet 0.5 - 1 mg PO BID PRN (Reason: anxiety or sleep) Qty: 60 0RF lidocaine 5 % adhesive patch,medicated 3 patch topical DAILY PRN (Reason: pain) Qty: 30 1RF Rx Instructions: leave on most painful area for up to 12 hrs albuterol sulfate 90 mcg/actuation HFA aerosol inhaler 1 inh IH QID PRN (Reason: wheezing) Qty: 8.5 5RF hydroxyzine HCl 25 mg tablet 25 mg PO QID PRN (Reason: anxiety) Qty: 60 2RF cetirizine 10 mg tablet 10 mg PO DAILY olanzapine 5 mg tablet See Rx Instructions .ROUTE .COMPLEX Rx Instructions: TAKE 1 TABLET BY MOUTH EVERY DAY omeprazole 40 mg capsule,delayed release(DR/EC) 40 mg PO DAILY cholecalciferol (vitamin D3) 125 mcg (5,000 unit) tablet 125 mcg PO DAILY Dulera 200-5 mcg/actuation HFA aerosol inhaler 2 puff IH BID Referrals Follow up/Referrals: Natalie Koch APRN [Primary Care Provider] - See instructions Clinical Impressions Clinical Impression: Acute chest pain Instructions Patient Instructions: DI for Atypical Chest Pain Print Language Print Language: Turkish Discharge ED Provider: Jamshid Feng General Adult HPI General Chief complaint: Chest Pain Stated complaint: chest pain Mode of Arrival: EMS Source of Information: Patient Limitations: No Limitations Description of Symptoms (Recalled from ER Triage Doc. by RN): pt c/o midsternal cp that radiates to back that started @ 6:30 pm that comes in waves. pt states she took 324mg ASA when pain started History of Present Illness HPI narrative: Patient presents to the emergency department with left posterior back pain extending into her chest. She states that it comes in waves that started around 6:30 PM tonight. She states that she has had this pain for several weeks and has been on multiple medications to help with the pain but nothing has significantly improved. She just got off of a recent course of steroids. Patient denies any cough, congestion, fever, chills, nausea or vomiting. Related Data Home Medications Medication Instructions Recorded Confirmed naproxen 500 mg tablet 500 mg PO DAILY Pain 12/09/22 01/08/23 cetirizine 10 mg tablet 10 mg PO DAILY Allergy symptoms 01/08/23 01/08/23 cholecalciferol (vitamin D3) 125 125 mcg PO DAILY Supplement 01/08/23 01/08/23 mcg (5,000 unit) tablet mometasone-formoterol HFA 200 2 puff inhalation BID Breathing 01/08/23 01/08/23 mcg-5 mcg/actuation aerosol problems inhaler (Dulera) olanzapine 5 mg tablet See Rx Instructions .Route 01/08/23 01/08/23 .COMPLEX Depression omeprazole 40 mg capsule,delayed 40 mg PO DAILY gerd 01/08/23 01/08/23 release Previous Rx's Medication Instructions Recorded ondansetron 4 mg disintegrating 4 mg PO Q4H PRN nausea and 04/15/22 tablet vomiting #30 tabs buspirone 10 mg tablet 10 mg PO TID PRN anxiety #60 tabs 10/24/22 lidocaine 5 % topical patch 3 patch topical DAILY PRN pain #30 12/26/22 ea risperidone 0.5 mg tablet 0.5 - 1 mg PO BID PRN anxiety or 12/26/22 sleep #60 tabs albuterol sulfate 90 mcg/actuation 1 inh inhalation QID PRN wheezing 01/01/23 aerosol inhaler #8.5 grams hydroxyzine HCl 25 mg tablet 25 mg PO QID PRN anxiety #60 tabs 01/01/23 Allergies Allergy/AdvReac Type Severity Reaction Status Date / Time amoxicillin [From Augmentin] Allergy Verified 01/06/23 08:31 clavulanic acid Allergy Verified 01/06/23 08:31 [From Augmentin] [facility] Disclaimer: The information contained in this section may have been updated after the patient was seen, as this information can be updated by o
[2023-01-09 02:00] VITALS: BP 119/86; PULSE 72; PULSE 80; RESP 17; TEMP 36.9; O2SAT 97
== END 2023-01-09 02:02 | disposition home or self-care (01) ==
PROVIDERS: Emergency Provider Emergency Medicine; PCP Nurse Practitioner
DX: R07.89 Other chest pain (principal); E87.6 Hypokalemia; R79.89 Other specified abnormal findings of blood chemistry
CPT/HCPCS: 71046; 71275; 80048; 84484; 84703; 85007; 85025; 85378; 93005; 96372; 96374; 99285; Q9967

== ENCOUNTER → 2023-08-27 23:07 | Outpatient (CLI) | payer MEDICAID, SELFPAY ==
[2023-08-27 19:22] LABS: Basophils % 0.4 % (0.1-2.0); Eosinophils # 0.2 K/mm3 (0.0-0.4); Hematocrit 45.1 % (37.0-47.0); Hemoglobin 14.7 g/dL (12.2-16.2); Lymphocytes # 1.4 K/mm3 (0.7-4.5); Lymphocytes % 14.4 % (10-50); Mean Corpuscular HGB Conc 32.7 g/dL (31.8-35.4); Mean Corpuscular Hemoglobin 33.5 pg (27.0-31.2); Mean Corpuscular Volume 102.4 fl (81-99); Mean Platelet Volume 9.6 fl (7.4-10.4); Monocytes # 0.4 K/mm3 (0.1-1.0); Monocytes % 4.1 % (1.7-9.3); Neutrophils # 7.7 K/mm3 (1.8-7.8); Neutrophils % 79.1 % (37.0-80.0); Platelet Count 286 K/mm3 (142-424); Red Blood Count 4.41 M/mm3 (4.20-5.40); Red Cell Distribution Width 13.6 % (11.5-17.5); White Blood Count 9.8 K/mm3 (4.8-10.8)
[2023-08-27 19:34] LABS: Alanine Aminotransferase 17 U/L (12-78); Albumin Level 4.7 g/dl (3.5-5.0); Albumin/Globulin Ratio 1.7 (1.1-1.8); Alkaline Phosphatase 74 U/L (38-126); Anion Gap 16.4 mEq/L (5-15); Aspartate Amino Transferase 25 U/L (14-36); Bilirubin,Total 0.4 mg/dl (0.2-1.3); Blood Urea Nitrogen 12 mg/dl (7-17); Calcium 9.7 mg/dl (8.4-10.2); Carbon Dioxide 23 mmol/L (22.0-30.0); Chloride 100 mmol/L (98-107); Estimated Glomerular Filt Rate 116 ml/min (>60); GFR (African American) 140 ML/MIN (>60); Globulin 2.8 g/dL (1.3-3.2); Glucose 87 mg/dl (74-100); Potassium 4.4 mmoL/L (3.5-5.1); Sodium 135 mmol/L (136-145); Total Protein,Serum 7.5 g/dl (6.3-8.2)
== END ==
PROVIDERS: PCP Nurse Practitioner; Visit Provider Nurse Practitioner
DX: R10.9 Unspecified abdominal pain (principal); B95.7 Other staphylococcus as the cause of diseases classified elsewhere
CPT/HCPCS: 80053; 85025; 87086

== ENCOUNTER 2023-11-13 22:12 | Outpatient (CLI) | payer BC, MEDICAID, SELFPAY | END 2023-11-13 23:59 | LOC: LAB.DROPOF 22:12 | PROVIDERS: PCP Nurse Practitioner; Visit Provider Nurse Practitioner | DX: R30.0 Dysuria (principal) | CPT/HCPCS: 87086 ==